=== PATIENT | male | born 1985 | race Caucasian/White ===

== ENCOUNTER 2018-09-17 12:10 | Inpatient (IN) | payer OTHER ==
--- NOTE | 2018-09-17 12:38 | HP ---
COWS - Scale Resting Pulse: 2= [place] 101-120 Sweatin= Chills/Flushing Restless Observation: 1= Difficult to Sit Still Pupil Size: 1= Pupils >than Normal Bone or Joint Aches: 2= Severe Diffuse Aches Runny Nose/ Eye Tearin= Runny Nose/Eyes GI Upset > 30mins: 2= Nausea/Diarrhea Tremor Observation: 2= Slight Tremor Visible Yawning Observation: 2= >3x During Session Anxiety or Irritability: 2=Irritable/Anxious Goose Flesh Skin: 0=Smooth Skin COWS Score: 17 Admission ROS S - HPI Chief Complaint: i need help to stop using heroin and cocaine Allergies/Adverse Reactions: Allergies Allergy/AdvReac Type Severity Reaction Status Date / Time No Known Allergies Allergy Verified 09/17/18 13:14 History of Present Illness: this 33 years old male with heroin and cocaine dependence,seeking detox, withdrawal symptom,last detox 08/06 [facility] first time in this facility nicotine dependence weight loss asthma anxiety,depression,insomnia longest period of sobriety 16 months Exam Limitations: No Limitations - Ebola screening Have you traveled outside of the country in the last 21 days: No Have you had contact with anyone from an Ebola affected area: No Do you have a fever: No - Review of Systems Constitutional: Chills, Loss of Appetite, Malaise, Night Sweats, Changes in sleep, Weakness, Unintentional Wgt. Loss EENT: reports: Tearing, Nose Congestion Respiratory: reports: No Symptoms reported Cardiac: reports: Palpitations GI: reports: Diarrhea, Nausea, Vomiting, Abdominal cramping : reports: No Symptoms Reported Musculoskeletal: reports: Back Pain, Joint Pain, Muscle Pain, Joint Stiffness Integumentary: reports: Dryness Neuro: reports: Headache, Tremors Endocrine: reports: No Symptoms Reported Hematology: reports: No Symptoms Reported Psychiatric: reports: No Sypmtoms Reported, Judgement Intact, Mood/Affect Appropiate, Orientated x3, Anxious, Depressed (insomnia) Patient History - Patient Medical History Hx Anemia: No Hx Asthma: Yes (on albutrol and symbicort inhaler) Hx Cancer: No Hx Cardiac Disorders: No Hx Congestive Heart Failure: No Hx Hypertension: No Hx Hypercholesterolemia: No Hx Pacemaker: No HX Cerebrovascular Accident: No Hx Seizures: No Hx Dementia: No Hx Diabetes: No Hx Gastrointestinal Disorders: No Hx Liver Disease: No Hx Genitourinary Disorders: No Hx Sexually Transmitted Disorders: No Hx Renal Disease (ESRD): No Hx Thyroid Disease: No Hx Human Immunodeficiency Virus (HIV): No (last 08/06 negative) Hx Hepatitis C: No Hx Depression: Yes (anxiety,insomnia) Hx Suicide Attempt: No Hx Bipolar Disorder: No Hx Schizophrenia: No Other Medical History: no sucidal,no homicidal - Patient Surgical History Past Surgical History: Yes Other Surgical History: incional and draige of abscess right elbow 1 month ago - PPD History Previous Implant?: Yes Documented Results: Negative w/o proof Implanted On Prior [facility] Admission?: No PPD to be Administered?: Yes - Smoking Cessation Smoking history: Current every day smoker Have you smoked in the past 12 months: Yes Aproximately how many cigarettes per day: 20 Cigars Per Day: 0 Hx Chewing Tobacco Use: No Initiated information on smoking cessation: Yes 'Breaking Loose' booklet given: 09/17/18 - Substance & Tx. History Hx Alcohol Use: No Hx Substance Use: Yes Substance Use Type: Alcohol, Cocaine, Heroin Hx Substance Use Treatment: Yes (08/06 [facility]) - Substances Abused Heroin Route: Injection Frequency: Daily Amount used: 10 to20 bags Age of first use: 27 Date of Last Use: 09/16/18 Cocaine Route: Injection Frequency: 1-2 times per week Amount used: 20$ Age of first use: 20 Date of Last Use: 09/15/18 Family Disease History - Family Disease History Family History: Denies Admission Physical Exam BHS - Vital Signs Vital Signs: Vital Signs Temperature 97.1 F L 09/18/18 06:06 Pulse Rate 88 09/18/18 06:06 Respiratory Rate 18 09/18/18 06:30 Blood Pressure 119/80 09/18/18 06:06 O2 Sat by Pulse Oximetry (%) - Physical General Appearance: Yes: Moderate Distress, Tremorous, Irritable, Sweating, Anxious HEENTM: Yes: Normal ENT Inspection, Normocephalic, SAMIA, Pharynx Normal Respiratory: Yes: Within Normal Limits, Lungs Clear, Normal Breath Sounds Neck: Yes: Within Normal Limits, Supple, Trachea in good position Breast: Yes: Within Normal Limits Cardiology: Yes: Tachycardia Abdominal: Yes: Within Normal Limits, Normal Bowel Sounds, Non Tender, Flat, Soft Genitourinary: Yes: Within Normal Limits Back: Yes: Muscle Spasm Musculoskeletal: Yes: full range of Motion, Joint Stiffness, Muscle Pain Extremities: Yes: Within Normal Limits, Normal Range of Motion, Tremors Neurological: Yes: wire puller II-XII NML intact, Fully Oriented, Alert, Motor Strength 5/5 Integumentary: Yes: Dry Lymphatic: Yes: Within Normal Limits - Diagnostic (1) Opioid dependence with withdrawal Current Visit: Yes Status: Acute (2) Cocaine dependence Current Visit: Yes Status: Acute (3) IVDU (intravenous drug user) Current Visit: Yes Status: Acute (4) Nicotine dependence Current Visit: Yes Status: Acute (5) Weight loss Current Visit: Yes Status: Acute (6) Insomnia secondary to depression with anxiety Current Visit: Yes Status: Acute Cleared for Admission [facility] - Detox or Rehab [facility] Level of Care: Medically Managed Detox Regimen/Protocol: Methadone
[2018-09-17 12:51] VITALS: BMI 21.1
[2018-09-17] MEDS ORDERED: MENTHOL/PHENOL 1 EACH UD MM PRN (13:05)
[2018-09-17] MEDS ORDERED: MAG HYDROX/AL HYDROX/SIMETH 30 ML UNIT-DOSE CUP PO PRN (13:05)
[2018-09-17] MEDS ORDERED: MAGNESIUM HYDROX 2400MG/30ML ORAL SUSPENSION 30 ML CUP PO PRN (13:05)
[2018-09-17] MEDS ORDERED: P-EPHED 60MG/TRIPROLIDI 2.5MG TABLET PO PRN (13:05)
[2018-09-17] MEDS ORDERED: MAGNESIUM CITRATE 300 ML BOTTLE PO PRN (13:05)
[2018-09-17] MEDS ORDERED: LOPERAMIDE HCL 2 MG CAPSULE PO PRN (13:05)
[2018-09-17] MEDS ORDERED: METHADONE HCL 10 MG TABLET (FOR DETOX USE ONLY) PO ONE ×2 (13:45→23:00)
[2018-09-17] MEDS: diazePAM 5 MG TABLET PO PRN ×2 (15:06→19:52)
[2018-09-17] MEDS: NICOTINE POLACRILEX 2 MG GUM BUC PRN (15:11)
[2018-09-17] MEDS: NICOTINE 21 MG/24 HOURS TOPICAL PATCH TD SCH (15:11)
--- NOTE | 2018-09-17 16:06 | EKG ---
Test Reason : Blood Pressure : / mmHG Vent. Rate : 097 BPM Atrial Rate : 097 BPM P-R Int : 140 ms QRS Dur : 082 ms QT Int : 324 ms P-R-T Axes : 052 076 052 degrees QTc Int : 411 ms NORMAL SINUS RHYTHM NORMAL ECG NO PREVIOUS ECGS AVAILABLE Confirmed by MD CLARICE, IRINA ([id number]) on 09/17/2018 4:05:57 PM Referred By: Confirmed By:IRINA ONEIL MD
[2018-09-17 17:36] LABS: URINE APPEARANCE CLEAR; URINE BILIRUBIN NEGATIVE (<2.0 mg/dL); URINE COLOR STRAW; URINE GLUCOSE (UA) NEGATIVE (NEGATIVE); URINE KETONE NEGATIVE (NEGATIVE); URINE LEUK ESTERASE NEGATIVE (NEGATIVE); URINE NITRITE NEGATIVE (NEGATIVE); URINE PROTEIN NEGATIVE (NEGATIVE); URINE UROBILINOGEN NEGATIVE mg/dL (0.2-1.0)
[2018-09-17] MEDS: ACETAMINOPHEN 325 MG TABLET (FP) PO PRN (19:50)
[2018-09-17] MEDS: CYCLOBENZAPRINE HCL 10 MG TABLET (FP) PO PRN (19:52)
[2018-09-17] MEDS: THIAMINE HCL 100 MG TABLET (FP) PO SCH (22:11)
[2018-09-17] MEDS: cloNIDine HCL 0.1 MG TABLET PO SCH (22:12)
[2018-09-17] MEDS: BUDESONIDE/FORMETEROL FUMARATE 80/4.5 mcg INHALER IH SCH (22:12)
[2018-09-18] MEDS: CYCLOBENZAPRINE HCL 10 MG TABLET (FP) PO PRN ×3 (08:42→22:07)
[2018-09-18 09:59] LABS: HEMATOCRIT 34.3 % (35.4-49); HEMOGLOBIN 11.4 GM/dL (11.7-16.9); MCH 30.4 pg (25.7-33.7); MCHC 33.1 g/dl (32.0-35.9); MEAN CELL VOLUME 91.7 fl (80-96); MEAN PLT VOLUME 9.7 fl (7.5-11.1); PLATELET COUNT 249 K/MM3 (134-434); RBC 3.74 M/mm3 (4.00-5.60); RDW 14.3 % (11.9-15.9); WHITE BLOOD COUNT 8.2 K/mm3 (4.0-10.0)
[2018-09-18] MEDS ORDERED: METHADONE HCL 10 MG TABLET (FOR DETOX USE ONLY) PO ONE (10:00)
[2018-09-18] MEDS: NICOTINE 21 MG/24 HOURS TOPICAL PATCH TD SCH (10:03)
[2018-09-18] MEDS: ACETAMINOPHEN 325 MG TABLET (FP) PO PRN ×3 (10:04→22:05)
[2018-09-18] MEDS: diazePAM 5 MG TABLET PO PRN ×3 (10:05→22:04)
[2018-09-18] MEDS: cloNIDine HCL 0.1 MG TABLET PO SCH ×2 (10:06→22:04)
[2018-09-18] MEDS: PRENATAL VITAMINS W/ FOLIC ACID TABLET (FP) PO SCH (10:08)
[2018-09-18] MEDS: BUDESONIDE/FORMETEROL FUMARATE 80/4.5 mcg INHALER IH SCH ×2 (10:10→22:03)
[2018-09-18 10:44] LABS: ALBUMIN 3.4 g/dl (3.4-5.0); ALK PHOS 55 U/L (45-117); ANION GAP 10 MMOL/L (8-16); BILIRUBIN,TOTAL 0.4 mg/dL (0.2-1); BLOOD UREA NITROGEN 9 mg/dL (7-18); CALCIUM 8.5 mg/dL (8.5-10.1); CHLORIDE 103 mmol/L (98-107); CO2 27 mmol/L (21-32); CREATININE 0.9 mg/dL (0.55-1.3); GLUCOSE,RANDOM 136 mg/dL (74-106); POTASSIUM 3.9 mmol/L (3.5-5.1); SGOT/AST 22 U/L (15-37); SGPT/ALT 29 U/L (13-61); SODIUM 139 mmol/L (136-145); TOT PROT 6.9 g/dl (6.4-8.2)
[2018-09-18] MEDS: IBUPROFEN 400 MG TABLET (FP) PO PRN (13:32)
--- NOTE | 2018-09-18 15:25 | PN ---
BHS COWS - Scale Resting Pulse: 2= [place] 101-120 Sweatin= Chills/Flushing Restless Observation: 3= Extraneous Movement Pupil Size: 0= Normal to Room Light Bone or Joint Aches: 2= Severe Diffuse Aches Runny Nose/ Eye Tearin= Runny Nose/Eyes GI Upset > 30mins: 2= Nausea/Diarrhea Tremor Observation of Outstretched Hands: 2= Slight Tremor Visible Yawning Observation: 0= None Anxiety or Irritability: 2=Irritable/Anxious Goose Flesh Skin: 0=Smooth Skin COWS Score: 16 BHS Progress Note (SOAP) Subjective: Sweating, tremor, joint pain, stomach cramps, nausea Objective: 09/18/18 15:21 Last Vital Signs Temp Pulse Resp BP Pulse Ox 97.0 F L 104 H 18 127/93 09/18/18 09:08 09/18/18 09:08 09/18/18 09:08 09/18/18 09:08 Laboratory Tests 09/17/18 09/18/18 09/18/18 16:30 06:00 06:00 WBC 8.2 RBC 3.74 L Hgb 11.4 L Hct 34.3 L MCV 91.7 MCH 30.4 MCHC 33.1 RDW 14.3 Plt Count 249 MPV 9.7 Sodium 139 Potassium 3.9 Chloride 103 Carbon Dioxide 27 Anion Gap 10 BUN 9 Creatinine 0.9 Creat Clearance w eGFR > 60 Random Glucose 136 H Calcium 8.5 Total Bilirubin 0.4 AST 22 ALT 29 Alkaline Phosphatase 55 Total Protein 6.9 Albumin 3.4 Urine Color Straw Urine Appearance Clear Urine pH 8.0 Ur Specific [place] 1.006 L Urine Protein Negative Urine Glucose (UA) Negative Urine Ketones Negative Urine Blood Negative Urine Nitrite Negative Urine Bilirubin Negative Urine Urobilinogen Negative Ur Leukocyte Esterase Negative RPR Titer 09/18/18 06:00 WBC RBC Hgb Hct MCV MCH MCHC RDW Plt Count MPV Sodium Potassium Chloride Carbon Dioxide Anion Gap BUN Creatinine Creat Clearance w eGFR Random Glucose Calcium Total Bilirubin AST ALT Alkaline Phosphatase Total Protein Albumin Urine Color Urine Appearance Urine pH Ur Specific [place] Urine Protein Urine Glucose (UA) Urine Ketones Urine Blood Urine Nitrite Urine Bilirubin Urine Urobilinogen Ur Leukocyte Esterase RPR Titer Nonreactive Labs reviewed: serum glucose 136 Assessment: 09/18/18 15:23 Withdrawal symptoms Noted with hyperglycemia Plan: Withdrawal symptoms Hyperglycemia: could be related to withdrawal, repeat fasting serum glucose in AM
--- NOTE | 2018-09-18 16:59 | CONSULT ---
[facility] Psychiatric Consult - Data Date of interview: 09/18/18 Admission source: [facility] Identifying data: Patient is a 33 year old single male, father of three, unemployed and currently homeless. This is patient's first admission to detox at [facility]. Patient admitted to for opioid dependence. Substance Abuse History: - Smoking Cessation. Smoking history: Current every day smoker. Have you smoked in the past 12 months: Yes. Aproximately how many cigarettes per day: 20. Cigars Per Day: 0. Hx Chewing Tobacco Use: No. Initiated information on smoking cessation: Yes. 'Breaking Loose' booklet given : 09/17/18. - Substance & Tx. History. Hx Alcohol Use: No. Hx Substance Use: Yes. Substance Use Type: Alcohol, Cocaine, Heroin. Hx Substance Use Treatment : Yes (08/06 [facility]). - Substances Abused. Heroin. Route : Injection. Frequency: Daily. Amount used: 10 to20 bags. Age of first use: 27. Date of Last Use: 09/16/18. Cocaine. Route: Injection. Frequency: 1- 2 times per week. Amount used: 20$. Age of first use: 20. Date of Last Use: 09/15/18 Medical History: Asthma Psychiatric History: Patient denies h/o psychiatric hospitalization and suicide attempt. He reports psychiatric care at the [facility] in 2010 in which he was prescribed celexa. He reports taking celexa for several months and then discontinued medication. In 2014 he was admitted to [facility] and was prescribed celexa and gabapentin. Patient last took celexa and gabapentin in 2014. At present, patient is c/o anxiety. Patient does not want to resume celexa. Physical/Sexual Abuse/Trauma History: denies. Mental Status Exam - Mental Status Exam Alert and Oriented to: Time, Place, Person Cognitive Function: Good Patient Appearance: Well Groomed Mood: Euthymic Affect: Appropriate Patient Behavior: Appropriate, Cooperative Speech Pattern: Clear, Appropriate Voice Loudness: Normal Thought Process: Intact, Goal Oriented Thought Disorder: Not Present Hallucinations: Denies Suicidal Ideation: Denies Homicidal Ideation: Denies Insight/Judgement: Fair Sleep: Fair Appetite: Fair Muscle strength/Tone: Normal Gait/Station: Normal Psychiatric Findings - Problem List (Falls Of Rough 1, 2,3) (1) Opioid dependence with withdrawal Current Visit: Yes Status: Acute (2) Cocaine dependence Current Visit: Yes Status: Chronic (3) Substance-induced anxiety disorder Current Visit: Yes Status: Acute (4) Nicotine dependence Current Visit: Yes Status: Chronic - Initial Treatment Plan Initial Treatment Plan: Psychoeducation provided. Detoxification in progress. Will order Vistaril 50mg q4h. Benefits and side effects discussed. Verbal consent given. Observation.
[2018-09-18] MEDS: ALBUTEROL SO4 8 GM HFA INHALER IH PRN ×2 (17:03→22:04)
[2018-09-18] MEDS: guaiFENesin/D-METHORPHAN HB 10 ML UNIT-DOSE CUPS PO PRN ×2 (17:05→22:05)
[2018-09-18] MEDS: THIAMINE HCL 100 MG TABLET (FP) PO SCH (22:03)
[2018-09-19] MEDS: diazePAM 5 MG TABLET PO PRN ×3 (05:54→19:28)
[2018-09-19] MEDS: ALBUTEROL SO4 8 GM HFA INHALER IH PRN ×2 (05:54→19:28)
[2018-09-19] MEDS: guaiFENesin/D-METHORPHAN HB 10 ML UNIT-DOSE CUPS PO PRN ×2 (05:54→19:28)
[2018-09-19] MEDS: CYCLOBENZAPRINE HCL 10 MG TABLET (FP) PO PRN ×2 (05:54→19:28)
[2018-09-19] MEDS: IBUPROFEN 400 MG TABLET (FP) PO PRN (06:22)
[2018-09-19] MEDS: ACETAMINOPHEN 325 MG TABLET (FP) PO PRN (08:29)
[2018-09-19] MEDS: BUDESONIDE/FORMETEROL FUMARATE 80/4.5 mcg INHALER IH SCH ×2 (09:59→22:26)
[2018-09-19] MEDS: cloNIDine HCL 0.1 MG TABLET PO SCH ×2 (10:00→22:26)
[2018-09-19] MEDS: PRENATAL VITAMINS W/ FOLIC ACID TABLET (FP) PO SCH (10:00)
[2018-09-19] MEDS ORDERED: METHADONE HCL 5 MG TABLET (FOR DETOX USE ONLY) PO ONE (10:00)
[2018-09-19] MEDS: NICOTINE 21 MG/24 HOURS TOPICAL PATCH TD SCH (10:02)
[2018-09-19] MEDS: NICOTINE POLACRILEX 2 MG GUM BUC PRN (10:03)
--- NOTE | 2018-09-19 15:01 | PN ---
BHS COWS - Scale Resting Pulse: 2= [place] 101-120 Sweatin= Chills/Flushing Restless Observation: 3= Extraneous Movement Pupil Size: 0= Normal to Room Light Bone or Joint Aches: 2= Severe Diffuse Aches Runny Nose/ Eye Tearin= Runny Nose/Eyes GI Upset > 30mins: 2= Nausea/Diarrhea Tremor Observation of Outstretched Hands: 2= Slight Tremor Visible Yawning Observation: 0= None Anxiety or Irritability: 2=Irritable/Anxious Goose Flesh Skin: 0=Smooth Skin COWS Score: 16 BHS Progress Note (SOAP) Subjective: Sweating, joint pain, stomach cramps, diarrhea, feeling weak Objective: 09/19/18 15:02 Last Vital Signs Temp Pulse Resp BP Pulse Ox 97.2 F L 115 H 18 105/72 09/19/18 13:20 09/19/18 13:20 09/19/18 13:20 09/19/18 13:20 Laboratory Tests 09/17/18 09/18/18 09/18/18 16:30 06:00 06:00 WBC 8.2 RBC 3.74 L Hgb 11.4 L Hct 34.3 L MCV 91.7 MCH 30.4 MCHC 33.1 RDW 14.3 Plt Count 249 MPV 9.7 Sodium 139 Potassium 3.9 Chloride 103 Carbon Dioxide 27 Anion Gap 10 BUN 9 Creatinine 0.9 Creat Clearance w eGFR > 60 Random Glucose 136 H Fasting Glucose Calcium 8.5 Total Bilirubin 0.4 AST 22 ALT 29 Alkaline Phosphatase 55 Total Protein 6.9 Albumin 3.4 Urine Color Straw Urine Appearance Clear Urine pH 8.0 Ur Specific [place] 1.006 L Urine Protein Negative Urine Glucose (UA) Negative Urine Ketones Negative Urine Blood Negative Urine Nitrite Negative Urine Bilirubin Negative Urine Urobilinogen Negative Ur Leukocyte Esterase Negative RPR Titer 09/18/18 09/19/18 06:00 07:00 WBC RBC Hgb Hct MCV MCH MCHC RDW Plt Count MPV Sodium Potassium Chloride Carbon Dioxide Anion Gap BUN Creatinine Creat Clearance w eGFR Random Glucose Fasting Glucose 92 Calcium Total Bilirubin AST ALT Alkaline Phosphatase Total Protein Albumin Urine Color Urine Appearance Urine pH Ur Specific [place] Urine Protein Urine Glucose (UA) Urine Ketones Urine Blood Urine Nitrite Urine Bilirubin Urine Urobilinogen Ur Leukocyte Esterase RPR Titer Nonreactive Labs reviewed Assessment: 09/19/18 15:03 Withdrawal symptoms Plan: Continue detox Encouraged PO water intake
[2018-09-19] MEDS: THIAMINE HCL 100 MG TABLET (FP) PO SCH (22:27)
[2018-09-19] MEDS: hydrOXYzine PAMOATE 50 MG CAPSULE (FP) PO PRN (22:27)
[2018-09-20] MEDS: diazePAM 5 MG TABLET PO PRN ×2 (07:43→11:58)
[2018-09-20] MEDS: IBUPROFEN 400 MG TABLET (FP) PO PRN ×2 (07:44→17:27)
[2018-09-20] MEDS: CYCLOBENZAPRINE HCL 10 MG TABLET (FP) PO PRN ×3 (07:44→22:08)
[2018-09-20] MEDS: guaiFENesin/D-METHORPHAN HB 10 ML UNIT-DOSE CUPS PO PRN ×2 (07:45→17:25)
[2018-09-20] MEDS: NICOTINE 21 MG/24 HOURS TOPICAL PATCH TD SCH (09:36)
[2018-09-20] MEDS: PRENATAL VITAMINS W/ FOLIC ACID TABLET (FP) PO SCH (09:36)
[2018-09-20] MEDS: cloNIDine HCL 0.1 MG TABLET PO SCH ×2 (09:36→22:07)
[2018-09-20] MEDS: BUDESONIDE/FORMETEROL FUMARATE 80/4.5 mcg INHALER IH SCH ×2 (09:36→22:06)
[2018-09-20] MEDS: ALBUTEROL SO4 8 GM HFA INHALER IH PRN (09:37)
[2018-09-20] MEDS: NICOTINE POLACRILEX 2 MG GUM BUC PRN ×3 (09:40→20:46)
[2018-09-20] MEDS ORDERED: METHADONE HCL 5 MG TABLET (FOR DETOX USE ONLY) PO ONE (10:00)
--- NOTE | 2018-09-20 15:15 | PN ---
BHS Progress Note (SOAP) Subjective: Sweating, aching, nausea, chills, interrupted sleep Objective: 09/20/18 15:15 Last Vital Signs Temp Pulse Resp BP Pulse Ox 97.1 F L 104 H 20 104/69 09/20/18 14:26 09/20/18 14:26 09/20/18 10:29 09/20/18 14:26 Laboratory Tests 09/17/18 09/18/18 09/18/18 16:30 06:00 06:00 WBC 8.2 RBC 3.74 L Hgb 11.4 L Hct 34.3 L MCV 91.7 MCH 30.4 MCHC 33.1 RDW 14.3 Plt Count 249 MPV 9.7 Sodium 139 Potassium 3.9 Chloride 103 Carbon Dioxide 27 Anion Gap 10 BUN 9 Creatinine 0.9 Creat Clearance w eGFR > 60 Random Glucose 136 H Fasting Glucose Calcium 8.5 Total Bilirubin 0.4 AST 22 ALT 29 Alkaline Phosphatase 55 Total Protein 6.9 Albumin 3.4 Urine Color Straw Urine Appearance Clear Urine pH 8.0 Ur Specific [place] 1.006 L Urine Protein Negative Urine Glucose (UA) Negative Urine Ketones Negative Urine Blood Negative Urine Nitrite Negative Urine Bilirubin Negative Urine Urobilinogen Negative Ur Leukocyte Esterase Negative RPR Titer 09/18/18 09/19/18 06:00 07:00 WBC RBC Hgb Hct MCV MCH MCHC RDW Plt Count MPV Sodium Potassium Chloride Carbon Dioxide Anion Gap BUN Creatinine Creat Clearance w eGFR Random Glucose Fasting Glucose 92 Calcium Total Bilirubin AST ALT Alkaline Phosphatase Total Protein Albumin Urine Color Urine Appearance Urine pH Ur Specific [place] Urine Protein Urine Glucose (UA) Urine Ketones Urine Blood Urine Nitrite Urine Bilirubin Urine Urobilinogen Ur Leukocyte Esterase RPR Titer Nonreactive Labs reviewed Assessment: 09/20/18 15:15 Withdrawal symptoms Plan: Continue detox Encouraged PO water intake
[2018-09-20] MEDS: hydrOXYzine PAMOATE 50 MG CAPSULE (FP) PO PRN ×2 (17:26→22:07)
[2018-09-20] MEDS: THIAMINE HCL 100 MG TABLET (FP) PO SCH (22:06)
[2018-09-20] MEDS: ACETAMINOPHEN 325 MG TABLET (FP) PO PRN (22:09)
[2018-09-20] MEDS: MELATONIN 5 MG TABLETS PO PRN (22:10)
[2018-09-21] MEDS ORDERED: ONDANSETRON *ODT* 4 MG TABLET SL PRN (09:52)
--- NOTE | 2018-09-21 09:53 | PN ---
[facility] Progress Note Note: Vital Signs Temperature 97.7 F 09/21/18 09:05 Pulse Rate 117 H 09/21/18 09:05 Respiratory Rate 18 09/21/18 09:05 Blood Pressure 122/94 09/21/18 09:05 O2 Sat by Pulse Oximetry (%) Laboratory Last Values WBC 8.2 K/mm3 (4.0-10.0) 09/18/18 06:00 RBC 3.74 M/mm3 (4.00-5.60) L 09/18/18 06:00 Hgb 11.4 GM/dL (11.7-16.9) L 09/18/18 06:00 Hct 34.3 % (35.4-49) L 09/18/18 06:00 MCV 91.7 fl (80-96) 09/18/18 06:00 MCH 30.4 pg (25.7-33.7) 09/18/18 06:00 MCHC 33.1 g/dl (32.0-35.9) 09/18/18 06:00 RDW 14.3 % (11.9-15.9) 09/18/18 06:00 Plt Count 249 K/MM3 (134-434) 09/18/18 06:00 MPV 9.7 fl (7.5-11.1) 09/18/18 06:00 Sodium 139 mmol/L (136-145) 09/18/18 06:00 Potassium 3.9 mmol/L (3.5-5.1) 09/18/18 06:00 Chloride 103 mmol/L (98-107) 09/18/18 06:00 Carbon Dioxide 27 mmol/L (21-32) 09/18/18 06:00 Anion Gap 10 MMOL/L (8-16) 09/18/18 06:00 BUN 9 mg/dL (7-18) 09/18/18 06:00 Creatinine 0.9 mg/dL (0.55-1.3) 09/18/18 06:00 Creat Clearance w eGFR > 60 (>60) 09/18/18 06:00 Random Glucose 136 mg/dL (74-106) H 09/18/18 06:00 Fasting Glucose 92 mg/dL (74-106) 09/19/18 07:00 Calcium 8.5 mg/dL (8.5-10.1) 09/18/18 06:00 Total Bilirubin 0.4 mg/dL (0.2-1) 09/18/18 06:00 AST 22 U/L (15-37) 09/18/18 06:00 ALT 29 U/L (13-61) 09/18/18 06:00 Alkaline Phosphatase 55 U/L (45-117) 09/18/18 06:00 Total Protein 6.9 g/dl (6.4-8.2) 09/18/18 06:00 Albumin 3.4 g/dl (3.4-5.0) 09/18/18 06:00 Urine Color Straw 09/17/18 16:30 Urine Appearance Clear 09/17/18 16:30 Urine pH 8.0 (5.0-8.0) 09/17/18 16:30 Ur Specific [place] 1.006 (1.010-1.035) L 09/17/18 16:30 Urine Protein Negative (NEGATIVE) 09/17/18 16:30 Urine Glucose (UA) Negative (NEGATIVE) 09/17/18 16:30 Urine Ketones Negative (NEGATIVE) 09/17/18 16:30 Urine Blood Negative (NEGATIVE) 09/17/18 16:30 Urine Nitrite Negative (NEGATIVE) 09/17/18 16:30 Urine Bilirubin Negative (<2.0 mg/dL) 09/17/18 16:30 Urine Urobilinogen Negative mg/dL (0.2-1.0) 09/17/18 16:30 Ur Leukocyte Esterase Negative (NEGATIVE) 09/17/18 16:30 RPR Titer Nonreactive (NONREACTIVE) 09/18/18 06:00 c/o of diarrhea, nausea and body aches Aox3 no distress anxious no adventitious breath sounds BS non-tender non distended full ROM ambulatory withdrawal symptoms zofran prn increase po fluids continue detox d/c in AM
[2018-09-21] MEDS ORDERED: METHADONE HCL 10 MG TABLET (FOR DETOX USE ONLY) PO ONE (10:00)
[2018-09-21] MEDS: CYCLOBENZAPRINE HCL 10 MG TABLET (FP) PO PRN ×3 (10:41→22:35)
[2018-09-21] MEDS: NICOTINE 21 MG/24 HOURS TOPICAL PATCH TD SCH (10:41)
[2018-09-21] MEDS: cloNIDine HCL 0.1 MG TABLET PO SCH ×2 (10:41→22:33)
[2018-09-21] MEDS: BUDESONIDE/FORMETEROL FUMARATE 80/4.5 mcg INHALER IH SCH ×2 (10:41→22:33)
[2018-09-21] MEDS: guaiFENesin/D-METHORPHAN HB 10 ML UNIT-DOSE CUPS PO PRN ×2 (10:41→22:37)
[2018-09-21] MEDS: PRENATAL VITAMINS W/ FOLIC ACID TABLET (FP) PO SCH (10:42)
[2018-09-21] MEDS: ALBUTEROL SO4 8 GM HFA INHALER IH PRN ×2 (10:43→22:36)
[2018-09-21] MEDS: IBUPROFEN 400 MG TABLET (FP) PO PRN (17:11)
[2018-09-21] MEDS: hydrOXYzine PAMOATE 50 MG CAPSULE (FP) PO PRN (17:12)
[2018-09-21] MEDS: THIAMINE HCL 100 MG TABLET (FP) PO SCH (22:33)
[2018-09-21] MEDS: MELATONIN 5 MG TABLETS PO PRN (22:34)
[2018-09-21] MEDS: NICOTINE POLACRILEX 2 MG GUM BUC PRN (22:37)
[2018-09-22] MEDS ORDERED: METHADONE HCL 5 MG TABLET (FOR DETOX USE ONLY) PO ONE (06:00)
[2018-09-22] MEDS: PRENATAL VITAMINS W/ FOLIC ACID TABLET (FP) PO SCH (09:25)
[2018-09-22] MEDS: hydrOXYzine PAMOATE 50 MG CAPSULE (FP) PO PRN (09:25)
[2018-09-22] MEDS: cloNIDine HCL 0.1 MG TABLET PO SCH (09:25)
[2018-09-22] MEDS: CYCLOBENZAPRINE HCL 10 MG TABLET (FP) PO PRN (09:25)
[2018-09-22] MEDS: BUDESONIDE/FORMETEROL FUMARATE 80/4.5 mcg INHALER IH SCH (09:25)
[2018-09-22] MEDS: IBUPROFEN 400 MG TABLET (FP) PO PRN (09:26)
[2018-09-22] MEDS: NICOTINE 21 MG/24 HOURS TOPICAL PATCH TD SCH (09:26)
[2018-09-22 09:37] VITALS: BP 121/77; PULSE 111; TEMP 97.2
--- NOTE | 2018-09-22 13:14 | DS ---
[facility] Detox Discharge Summary Admission Date: 09/17/18 Discharge Date: 09/22/18 - History Present History: Cocaine Dependence, Opioid Dependence Additional Comments: Patient discharged to [facility] - Physical Exam Results Vital Signs: Vital Signs Temperature 97.2 F L 09/22/18 09:37 Pulse Rate 111 H 09/22/18 09:37 Respiratory Rate 20 09/22/18 09:37 Blood Pressure 121/77 09/22/18 09:37 O2 Sat by Pulse Oximetry (%) Pertinent Admission Physical Exam Findings: Withdrawal symptoms Laboratory Tests 09/17/18 09/18/18 09/18/18 16:30 06:00 06:00 WBC 8.2 RBC 3.74 L Hgb 11.4 L Hct 34.3 L MCV 91.7 MCH 30.4 MCHC 33.1 RDW 14.3 Plt Count 249 MPV 9.7 Sodium 139 Potassium 3.9 Chloride 103 Carbon Dioxide 27 Anion Gap 10 BUN 9 Creatinine 0.9 Creat Clearance w eGFR > 60 Random Glucose 136 H Fasting Glucose Calcium 8.5 Total Bilirubin 0.4 AST 22 ALT 29 Alkaline Phosphatase 55 Total Protein 6.9 Albumin 3.4 Urine Color Straw Urine Appearance Clear Urine pH 8.0 Ur Specific [place] 1.006 L Urine Protein Negative Urine Glucose (UA) Negative Urine Ketones Negative Urine Blood Negative Urine Nitrite Negative Urine Bilirubin Negative Urine Urobilinogen Negative Ur Leukocyte Esterase Negative RPR Titer 09/18/18 09/19/18 06:00 07:00 WBC RBC Hgb Hct MCV MCH MCHC RDW Plt Count MPV Sodium Potassium Chloride Carbon Dioxide Anion Gap BUN Creatinine Creat Clearance w eGFR Random Glucose Fasting Glucose 92 Calcium Total Bilirubin AST ALT Alkaline Phosphatase Total Protein Albumin Urine Color Urine Appearance Urine pH Ur Specific [place] Urine Protein Urine Glucose (UA) Urine Ketones Urine Blood Urine Nitrite Urine Bilirubin Urine Urobilinogen Ur Leukocyte Esterase RPR Titer Nonreactive Labs reviewed - Treatment Hospital Course: Detox Protocol Followed, Detoxed Safely, Responded well, Discharged Condition Good, Rehab Referral Accepted - Medication Discharge Medications: Ambulatory Orders Albuterol Sulfate Inhaler - [Ventolin HFA Inhaler -] 2 puff IH Q4H PRN 09/17/18 Budesonide/Formeterol Fumarate [SYMBICORT 80/4.5mcg -] 1 inh PO BID 09/17/18 Albuterol Sulfate Inhaler - [Ventolin HFA Inhaler -] 2 puff IH Q4H PRN #1 inhaler 09/21/18 Budesonide/Formeterol Fumarate [SYMBICORT 80/4.5mcg -] 2 puff IH BID #1 inhaler 09/21/18 - Diagnosis (1) Asthma Current Visit: Yes Status: Chronic (2) Anxiety Current Visit: Yes Status: Chronic (3) Cocaine dependence Current Visit: Yes Status: Chronic (4) Insomnia secondary to depression with anxiety Current Visit: Yes Status: Chronic (5) Nicotine dependence Current Visit: Yes Status: Chronic (6) Opioid dependence with withdrawal Current Visit: Yes Status: Acute - AMA Did Patient Leave Against Medical Advice: No (Patient accepted to [facility] facility)
== END 2018-09-22 10:56 | disposition home or self-care (01) | DRG 773 ==
LOC: YASAS 12:10 → Y3N 13:09
PROC: HZ2ZZZZ Detoxification Services for Substance Abuse Treatment (ICD-10-PCS; principal; 2018-09-17)
DX: F11.23 Opioid dependence with withdrawal (principal); F14.20 Cocaine dependence, uncomplicated; F17.210 Nicotine dependence, cigarettes, uncomplicated; F51.05 Insomnia due to other mental disorder; F41.9 Anxiety disorder, unspecified; F19.280 Other psychoactive substance dependence with psychoactive substance-induced anxiety disorder; J45.909 Unspecified asthma, uncomplicated; R73.9 Hyperglycemia, unspecified; R63.4 Abnormal weight loss; Z68.21 Body mass index [BMI] 21.0-21.9, adult
CPT/HCPCS: 36415; 80053; 81003; 82947; 85027; 86593; 93005; 93010; J0735

== ENCOUNTER 2018-12-22 08:02 | Inpatient (IN) | payer OTHER ==
[2018-12-22 08:52] VITALS: BMI 21.4
--- NOTE | 2018-12-22 09:10 | HP ---
COWS - Scale Resting Pulse: 1= [place] [id number] Sweatin= Chills/Flushing Restless Observation: 3= Extraneous Movement Pupil Size: 1= Pupils >than Normal Bone or Joint Aches: 2= Severe Diffuse Aches Runny Nose/ Eye Tearin= Runny Nose/Eyes GI Upset > 30mins: 2= Nausea/Diarrhea Tremor Observation: 2= Slight Tremor Visible Yawning Observation: 2= >3x During Session Anxiety or Irritability: 2=Irritable/Anxious Goose Flesh Skin: 0=Smooth Skin COWS Score: 18 CIWA Score - Admission Criteria [facility] Guidelines: Admission for Medically Managed Detox: Requires at least one of the followin. CIWA greater than 12 2. Seizures within the past 24 hours 3. Delirium tremens within the past 24 hours 4. Hallucinations within the past 24 hours 5. Acute intervention needed for co occurring medical disorder 6. Acute intervention needed for co occurring psychiatric disorder 7. Severe withdrawal that cannot be handled at a lower level of care (continued vomiting, continued diarrhea, abnormal vital signs) requiring intravenous medication and/or fluids 8. Admission ROS [facility] - [facility] Chief Complaint: i need help to stop using herorin,cocaine,marijuana, Allergies/Adverse Reactions: Allergies Allergy/AdvReac Type Severity Reaction Status Date / Time No Known Allergies Allergy Verified 12/22/18 09:40 History of Present Illness: this 33 years old male with heroin ,cocaine and marijuana dependence,seeking detox,withdrawal symptom,last detox 09/17/18 to 09/22/18 asthma,lyme disease in 2008 used to be on subxoxone ,last 10/17/[address] suboxone 3 days ago once nicotine dependence weight loss anxiety,depression,no medication longest sobriety 1 year Exam Limitations: No Limitations - Ebola screening Have you traveled outside of the country in the last 21 days: No (N) Have you had contact with anyone from an Ebola affected area: No Have you been sick,other than usual withdrawal symptoms: No Do you have a fever: No - Review of Systems Constitutional: Chills, Diaphoresis, Loss of Appetite, Malaise, Night Sweats, Changes in sleep, Weakness, Unintentional Wgt. Loss EENT: reports: Tearing, Nose Congestion Respiratory: reports: No Symptoms reported (asthma) Cardiac: reports: No Symptoms Reported GI: reports: No Symptoms Reported, Diarrhea, Nausea, Abdominal cramping : reports: No Symptoms Reported Musculoskeletal: reports: Back Pain, Joint Pain, Muscle Pain, Joint Stiffness Integumentary: reports: Dryness Neuro: reports: Headache, Tremors Endocrine: reports: No Symptoms Reported Hematology: reports: No Symptoms Reported Psychiatric: reports: No Sypmtoms Reported, Judgement Intact, Mood/Affect Appropiate, Orientated x3 Other Systems: Reviewed and Negative (history of sinusitis) Patient History - Patient Medical History Hx Anemia: No Hx Asthma: Yes (on albutrol and symbicort inhaler) Hx Chronic Obstructive Pulmonary Disease (COPD): No Hx Cancer: No Hx Cardiac Disorders: No Hx Congestive Heart Failure: No Hx Hypertension: No Hx Hypercholesterolemia: No Hx Pacemaker: No HX Cerebrovascular Accident: No Hx Seizures: No Hx Dementia: No Hx Diabetes: No Hx Gastrointestinal Disorders: No Hx Liver Disease: No Hx Genitourinary Disorders: No Hx Sexually Transmitted Disorders: No Hx Renal Disease (ESRD): No Hx Thyroid Disease: No Hx Human Immunodeficiency Virus (HIV): No (last 08/06 negative) Hx Hepatitis C: No Hx Depression: Yes (anxiety,insomnia) Hx Suicide Attempt: No Hx Bipolar Disorder: No Hx Schizophrenia: No Other Medical History: no suicidal,no homicidal - Patient Surgical History Past Surgical History: Yes Other Surgical History: incional and draige of abscess right elbow 1 month ago - PPD History Previous Implant?: Yes Documented Results: Negative w/proof Implanted On Prior R Admission?: Yes Date: 09/19/18 Results: 0 mm PPD to be Administered?: No - Smoking Cessation Smoking history: Current every day smoker Have you smoked in the past 12 months: Yes Aproximately how many cigarettes per day: 20 Cigars Per Day: 0 Hx Chewing Tobacco Use: No Initiated information on smoking cessation: Yes 'Breaking Loose' booklet given: 12/22/18 - Substance & Tx. History Hx Alcohol Use: No Hx Substance Use: Yes Substance Use Type: Cocaine, Heroin, Marijuana Hx Substance Use Treatment: Yes ([facility] 09/[facility]18 [facility] 09/22/18) - Substances Abused Heroin Route: Injection Frequency: Daily Amount used: 30 bags to 40 bags Age of first use: 27 Date of Last Use: 12/21/18 Cocaine Route: Injection Frequency: Daily Amount used: 50$ to 100$ Age of first use: 16 Date of Last Use: 12/21/18 Marijuana/Hashish Route: Smoking Frequency: 1-2 times per week Amount used: 10$ Age of first use: 13 Date of Last Use: 12/20/18 Family Disease History - Family Disease History Family Disease History: Other: Mother (alcohol,dsa,sober) Admission Physical Exam [facility] - Vital Signs Vital Signs: Vital Signs - 24 hr 12/22/18 08:49 Temperature 98.1 F Pulse Rate 99 H Respiratory 18 Rate Blood Pressure 114/72 - Physical General Appearance: Yes: Moderate Distress, Tremorous, Irritable, Sweating, Anxious HEENTM: Yes: Normal ENT Inspection, SAMIA, Pharynx Normal (history of sinusitis) Respiratory: Yes: Lungs Clear, Normal Breath Sounds, No Respiratory Distress ( asthma) Breast: Yes: Within Normal Limits Cardiology: Yes: Within Normal Limits, Regular Rhythm, Regular Rate, S1, S2 Abdominal: Yes: Normal Bowel Sounds, Non Tender, Soft, Organomegaly Genitourinary: Yes: Within Normal Limits Back: Yes: Muscle Spasm Extremities: Yes: Normal Inspection, Normal Range of Motion, Tremors Neurological: Yes: alumni coordinator II-XII NML intact, Fully Oriented, Alert, Motor Strength 5/5 Integumentary: Yes: Dry Lymphatic: Yes: Within Normal Limits - Diagnostic (1) Opioid dependence with withdrawal Current Visit: No Status: Acute (2) IVDU (intravenous drug user) Current Visit: No Status: Acute (3) Weight loss Current Visit: No Status: Acute (4) Asthma Current Visit: No Status: Chronic (5) Cocaine dependence Current Visit: No Status: Chronic (6) Insomnia secondary to depression with anxiety Current Visit: No Status: Chronic (7) Nicotine dependence Current Visit: No Status: Chronic (8) Cannabis abuse Current Visit: Yes Status: Acute (9) Acute sinusitis Current Visit: Yes Status: Acute Cleared for Admission [facility] - Detox or Rehab [facility] Level of Care: Medically Managed Detox Regimen/Protocol: Methadone [facility] Breath Alcohol Content Breath Alcohol Content: 0 Urine Drug Screen - Results Drug Screen Negative: No Urine Drug Screen Results: THC-Marijuana, ZHANG-Cocaine, OPI-Opiates, OXY- Oxycodone, FEN-Fentanyl
[2018-12-22] MEDS ORDERED: MAGNESIUM CITRATE 300 ML BOTTLE PO PRN (09:28)
[2018-12-22] MEDS ORDERED: MENTHOL/PHENOL 1 EACH UD MM PRN (09:28)
[2018-12-22] MEDS ORDERED: ACETAMINOPHEN 325 MG TABLET (FP) PO PRN (09:28)
[2018-12-22] MEDS ORDERED: MAGNESIUM HYDROX 2400MG/30ML ORAL SUSPENSION 30 ML CUP PO PRN (09:28)
[2018-12-22] MEDS ORDERED: guaiFENesin/D-METHORPHAN HB 10 ML UNIT-DOSE CUPS PO PRN (09:28)
[2018-12-22] MEDS ORDERED: LOPERAMIDE HCL 2 MG CAPSULE PO PRN (09:28)
[2018-12-22] MEDS ORDERED: P-EPHED 60MG/TRIPROLIDI 2.5MG TABLET PO PRN (09:28)
[2018-12-22] MEDS ORDERED: ALBUTEROL SO4 8 GM HFA INHALER IH PRN (10:25)
[2018-12-22] MEDS ORDERED: METHADONE HCL 10 MG TABLET (FOR DETOX USE ONLY) PO ONE ×2 (10:30→23:00)
[2018-12-22] MEDS: cloNIDine HCL 0.1 MG TABLET PO SCH ×2 (11:02→22:13)
[2018-12-22] MEDS: diazePAM 5 MG TABLET PO PRN ×3 (11:02→22:13)
[2018-12-22] MEDS: PRENATAL VITAMINS W/ FOLIC ACID TABLET (FP) PO SCH (11:04)
[2018-12-22] MEDS: NICOTINE 21 MG/24 HOURS TOPICAL PATCH TD SCH (11:04)
[2018-12-22] MEDS: AMOX TR/POT CLAV 875MG/125MG TABLETS (FP) PO SCH (17:23)
[2018-12-22] MEDS: NICOTINE POLACRILEX 2 MG GUM BUC PRN (17:25)
[2018-12-22] MEDS: THIAMINE HCL 100 MG TABLET (FP) PO SCH (22:13)
[2018-12-22] MEDS: CYCLOBENZAPRINE HCL 10 MG TABLET (FP) PO PRN (22:13)
[2018-12-22] MEDS: BUDESONIDE/FORMETEROL FUMARATE 80/4.5 mcg INHALER IH SCH (22:19)
[2018-12-23 01:08] LABS: URINE APPEARANCE CLEAR; URINE BILIRUBIN NEGATIVE (<2.0 mg/dL); URINE COLOR DKYELLOW; URINE GLUCOSE (UA) NEGATIVE (NEGATIVE); URINE KETONE NEGATIVE (NEGATIVE); URINE LEUK ESTERASE NEGATIVE (NEGATIVE); URINE NITRITE NEGATIVE (NEGATIVE); URINE PROTEIN 1+ (NEGATIVE); URINE UROBILINOGEN 4.0 E.U/dl mg/dL (0.2-1.0)
[2018-12-23 01:39] LABS: CALCIUM OXALATE CRYSTALS FEW /hpf (NONE SEEN); EPI CELLS RARE /HPF (FEW); URINE MUCUS FEW
[2018-12-23] MEDS: AMOX TR/POT CLAV 875MG/125MG TABLETS (FP) PO SCH ×2 (08:08→17:11)
--- NOTE | 2018-12-23 09:20 | PN ---
BHS COWS - Scale Resting Pulse: 1= [place] 81-100 Sweatin= Chills/Flushing Restless Observation: 1= Difficult to Sit Still Pupil Size: 1= Pupils >than Normal Bone or Joint Aches: 2= Severe Diffuse Aches Runny Nose/ Eye Tearin= Nasal Congestion GI Upset > 30mins: 2= Nausea/Diarrhea Tremor Observation of Outstretched Hands: 2= Slight Tremor Visible Yawning Observation: 1= 1-2x During Session Anxiety or Irritability: 1=Feels Anxious/Irritable Goose Flesh Skin: 0=Smooth Skin COWS Score: 13 BHS Progress Note (SOAP) Subjective: body aches muscle cramping stuffy nose Objective: 12/23/18 09:19 Vital Signs Temperature 97.9 F 12/23/18 09:02 Pulse Rate 96 H 12/23/18 09:02 Respiratory Rate 18 12/23/18 09:02 Blood Pressure 127/86 12/23/18 09:02 O2 Sat by Pulse Oximetry (%) Laboratory Last Values Urine Color Dkyellow 12/22/18 23:51 Urine Appearance Clear 12/22/18 23:51 Urine pH 6.0 (5.0-8.0) D 12/22/18 23:51 Ur Specific [place] 1.031 (1.010-1.035) 12/22/18 23:51 Urine Protein 1+ (NEGATIVE) H 12/22/18 23:51 Urine Glucose (UA) Negative (NEGATIVE) 12/22/18 23:51 Urine Ketones Negative (NEGATIVE) 12/22/18 23:51 Urine Blood Negative (NEGATIVE) 12/22/18 23:51 Urine Nitrite Negative (NEGATIVE) 12/22/18 23:51 Urine Bilirubin Negative (<2.0 mg/dL) 12/22/18 23:51 Urine Urobilinogen 4.0 e.u/dl mg/dL (0.2-1.0) 12/22/18 23:51 Ur Leukocyte Esterase Negative (NEGATIVE) 12/22/18 23:51 Urine WBC (Auto) 1 /hpf (3-5) 12/22/18 23:51 Urine RBC (Auto) 1 /hpf (0-3) 12/22/18 23:51 Ur Epithelial Cells Rare /HPF (FEW) 12/22/18 23:51 Calcium Oxalate Crystal Few /hpf (NONE SEEN) 12/22/18 23:51 Urine Mucus Few 12/22/18 23:51 lab noted Assessment: 12/23/18 09:19 withdrawal sx Plan: continue detox
[2018-12-23] MEDS: PRENATAL VITAMINS W/ FOLIC ACID TABLET (FP) PO SCH (09:32)
[2018-12-23] MEDS: BUDESONIDE/FORMETEROL FUMARATE 80/4.5 mcg INHALER IH SCH ×2 (09:32→22:37)
[2018-12-23] MEDS: diazePAM 5 MG TABLET PO PRN ×3 (09:32→22:36)
[2018-12-23] MEDS: CYCLOBENZAPRINE HCL 10 MG TABLET (FP) PO PRN ×2 (09:34→22:37)
[2018-12-23] MEDS: cloNIDine HCL 0.1 MG TABLET PO SCH ×2 (09:34→22:37)
[2018-12-23] MEDS ORDERED: METHADONE HCL 10 MG TABLET (FOR DETOX USE ONLY) PO ONE (10:00)
[2018-12-23 10:05] LABS: HEMATOCRIT 41.1 % (35.4-49); MCH 30.4 pg (25.7-33.7); MCHC 34.2 g/dl (32.0-35.9); MEAN CELL VOLUME 88.9 fl (80-96); MEAN PLT VOLUME 9.6 fl (7.5-11.1); PLATELET COUNT 234 K/MM3 (134-434); RBC 4.62 M/mm3 (4.00-5.60); RDW 13.7 % (11.9-15.9); WHITE BLOOD COUNT 6.5 K/mm3 (4.0-10.0)
[2018-12-23] MEDS: NICOTINE 21 MG/24 HOURS TOPICAL PATCH TD SCH (10:17)
[2018-12-23 10:32] LABS: ALBUMIN 3.3 g/dl (3.4-5.0); ALK PHOS 50 U/L (45-117); ANION GAP 6 MMOL/L (8-16); BILIRUBIN,TOTAL 0.3 mg/dL (0.2-1); BLOOD UREA NITROGEN 12 mg/dL (7-18); CALCIUM 8.7 mg/dL (8.5-10.1); CHLORIDE 107 mmol/L (98-107); CO2 28 mmol/L (21-32); CREATININE 0.8 mg/dL (0.55-1.3); GLUCOSE,RANDOM 87 mg/dL (74-106); POTASSIUM 4.1 mmol/L (3.5-5.1); SGOT/AST 19 U/L (15-37); SGPT/ALT 24 U/L (13-61); SODIUM 142 mmol/L (136-145); TOT PROT 6.3 g/dl (6.4-8.2)
[2018-12-23] MEDS: THIAMINE HCL 100 MG TABLET (FP) PO SCH (22:37)
[2018-12-24] MEDS: AMOX TR/POT CLAV 875MG/125MG TABLETS (FP) PO SCH ×2 (07:57→16:45)
[2018-12-24] MEDS ORDERED: METHADONE HCL 5 MG TABLET (FOR DETOX USE ONLY) PO ONE (10:00)
[2018-12-24] MEDS: diazePAM 5 MG TABLET PO PRN ×3 (10:30→22:10)
[2018-12-24] MEDS: CYCLOBENZAPRINE HCL 10 MG TABLET (FP) PO PRN ×2 (10:30→22:10)
[2018-12-24] MEDS: PRENATAL VITAMINS W/ FOLIC ACID TABLET (FP) PO SCH (10:30)
[2018-12-24] MEDS: cloNIDine HCL 0.1 MG TABLET PO SCH ×2 (10:30→22:10)
[2018-12-24] MEDS: BUDESONIDE/FORMETEROL FUMARATE 80/4.5 mcg INHALER IH SCH ×2 (10:31→22:10)
[2018-12-24] MEDS: NICOTINE POLACRILEX 2 MG GUM BUC PRN ×3 (10:31→22:13)
[2018-12-24] MEDS: NICOTINE 21 MG/24 HOURS TOPICAL PATCH TD SCH (10:31)
--- NOTE | 2018-12-24 14:58 | PN ---
BHS COWS - Scale Resting Pulse: 1= [place] 81-100 Sweatin= Chills/Flushing Restless Observation: 1= Difficult to Sit Still Pupil Size: 1= Pupils >than Normal Bone or Joint Aches: 1= Mild Discomfort Runny Nose/ Eye Tearin= Nasal Congestion GI Upset > 30mins: 1= Stomach Cramp Tremor Observation of Outstretched Hands: 1= Tremor [place], Not Seen Yawning Observation: 1= 1-2x During Session Anxiety or Irritability: 1=Feels Anxious/Irritable Goose Flesh Skin: 0=Smooth Skin COWS Score: 10 S Progress Note (SOAP) Subjective: body aches tremor sweating otherwise ok doing better than yesterday Objective: 12/24/18 14:57 Vital Signs Temperature 97.2 F L 12/24/18 13:38 Pulse Rate 103 H 12/24/18 13:38 Respiratory Rate 18 12/24/18 13:38 Blood Pressure 117/80 12/24/18 13:38 O2 Sat by Pulse Oximetry (%) Laboratory Last Values WBC 6.5 K/mm3 (4.0-10.0) 12/23/18 07:00 RBC 4.62 M/mm3 (4.00-5.60) 12/23/18 07:00 Hgb 14.0 GM/dL (11.7-16.9) 12/23/18 07:00 Hct 41.1 % (35.4-49) D 12/23/18 07:00 MCV 88.9 fl (80-96) 12/23/18 07:00 MCH 30.4 pg (25.7-33.7) 12/23/18 07:00 MCHC 34.2 g/dl (32.0-35.9) 12/23/18 07:00 RDW 13.7 % (11.9-15.9) 12/23/18 07:00 Plt Count 234 K/MM3 (134-434) 12/23/18 07:00 MPV 9.6 fl (7.5-11.1) 12/23/18 07:00 Sodium 142 mmol/L (136-145) 12/23/18 07:00 Potassium 4.1 mmol/L (3.5-5.1) 12/23/18 07:00 Chloride 107 mmol/L (98-107) 12/23/18 07:00 Carbon Dioxide 28 mmol/L (21-32) 12/23/18 07:00 Anion Gap 6 MMOL/L (8-16) L 12/23/18 07:00 BUN 12 mg/dL (7-18) 12/23/18 07:00 Creatinine 0.8 mg/dL (0.55-1.3) 12/23/18 07:00 Creat Clearance w eGFR > 60 (>60) 12/23/18 07:00 Random Glucose 87 mg/dL (74-106) 12/23/18 07:00 Calcium 8.7 mg/dL (8.5-10.1) 12/23/18 07:00 Total Bilirubin 0.3 mg/dL (0.2-1) 12/23/18 07:00 AST 19 U/L (15-37) 12/23/18 07:00 ALT 24 U/L (13-61) 12/23/18 07:00 Alkaline Phosphatase 50 U/L (45-117) 12/23/18 07:00 Total Protein 6.3 g/dl (6.4-8.2) L 12/23/18 07:00 Albumin 3.3 g/dl (3.4-5.0) L 12/23/18 07:00 Urine Color Dkyellow 12/22/18 23:51 Urine Appearance Clear 12/22/18 23:51 Urine pH 6.0 (5.0-8.0) D 12/22/18 23:51 Ur Specific [place] 1.031 (1.010-1.035) 12/22/18 23:51 Urine Protein 1+ (NEGATIVE) H 12/22/18 23:51 Urine Glucose (UA) Negative (NEGATIVE) 12/22/18 23:51 Urine Ketones Negative (NEGATIVE) 12/22/18 23:51 Urine Blood Negative (NEGATIVE) 12/22/18 23:51 Urine Nitrite Negative (NEGATIVE) 12/22/18 23:51 Urine Bilirubin Negative (<2.0 mg/dL) 12/22/18 23:51 Urine Urobilinogen 4.0 e.u/dl mg/dL (0.2-1.0) 12/22/18 23:51 Ur Leukocyte Esterase Negative (NEGATIVE) 12/22/18 23:51 Urine WBC (Auto) 1 /hpf (3-5) 12/22/18 23:51 Urine RBC (Auto) 1 /hpf (0-3) 12/22/18 23:51 Ur Epithelial Cells Rare /HPF (FEW) 12/22/18 23:51 Calcium Oxalate Crystal Few /hpf (NONE SEEN) 12/22/18 23:51 Urine Mucus Few 12/22/18 23:51 RPR Titer Nonreactive (NONREACTIVE) 12/23/18 07:00 HIV 1&2 Antibody Screen Negative 12/23/18 07:00 HIV P24 Antigen Negative 12/23/18 07:00 lab noted Assessment: 12/24/18 14:58 withdrawal sx Plan: continue detox
[2018-12-24] MEDS: THIAMINE HCL 100 MG TABLET (FP) PO SCH (22:10)
[2018-12-24] MEDS: MAG HYDROX/AL HYDROX/SIMETH 30 ML UNIT-DOSE CUP PO PRN (22:10)
[2018-12-24] MEDS: MELATONIN 5 MG TABLETS PO PRN (22:12)
[2018-12-25] MEDS: IBUPROFEN 400 MG TABLET (FP) PO PRN (06:51)
[2018-12-25] MEDS: diazePAM 5 MG TABLET PO PRN (06:51)
[2018-12-25] MEDS: AMOX TR/POT CLAV 875MG/125MG TABLETS (FP) PO SCH ×2 (07:39→16:59)
[2018-12-25] MEDS ORDERED: METHADONE HCL 5 MG TABLET (FOR DETOX USE ONLY) PO ONE (10:00)
[2018-12-25] MEDS: CYCLOBENZAPRINE HCL 10 MG TABLET (FP) PO PRN ×2 (10:15→22:15)
[2018-12-25] MEDS: cloNIDine HCL 0.1 MG TABLET PO SCH ×2 (10:15→22:15)
[2018-12-25] MEDS: PRENATAL VITAMINS W/ FOLIC ACID TABLET (FP) PO SCH (10:15)
[2018-12-25] MEDS: NICOTINE POLACRILEX 2 MG GUM BUC PRN (10:16)
[2018-12-25] MEDS: BUDESONIDE/FORMETEROL FUMARATE 80/4.5 mcg INHALER IH SCH ×2 (10:16→22:14)
[2018-12-25] MEDS: NICOTINE 21 MG/24 HOURS TOPICAL PATCH TD SCH (10:16)
--- NOTE | 2018-12-25 11:13 | PN ---
BHS Progress Note (SOAP) Subjective: body aches muscle pain tremor sweating patient is taking paxil last 30 days filled 11/22/18 last dose of paxil unknown patient is taking psychotropic medication met psychiatry referral criteria Objective: 12/25/18 11:17 Vital Signs Temperature 97.2 F L 12/25/18 09:12 Pulse Rate 100 H 12/25/18 09:12 Respiratory Rate 18 12/25/18 09:12 Blood Pressure 107/72 12/25/18 09:12 O2 Sat by Pulse Oximetry (%) Laboratory Last Values WBC 6.5 K/mm3 (4.0-10.0) 12/23/18 07:00 RBC 4.62 M/mm3 (4.00-5.60) 12/23/18 07:00 Hgb 14.0 GM/dL (11.7-16.9) 12/23/18 07:00 Hct 41.1 % (35.4-49) D 12/23/18 07:00 MCV 88.9 fl (80-96) 12/23/18 07:00 MCH 30.4 pg (25.7-33.7) 12/23/18 07:00 MCHC 34.2 g/dl (32.0-35.9) 12/23/18 07:00 RDW 13.7 % (11.9-15.9) 12/23/18 07:00 Plt Count 234 K/MM3 (134-434) 12/23/18 07:00 MPV 9.6 fl (7.5-11.1) 12/23/18 07:00 Sodium 142 mmol/L (136-145) 12/23/18 07:00 Potassium 4.1 mmol/L (3.5-5.1) 12/23/18 07:00 Chloride 107 mmol/L (98-107) 12/23/18 07:00 Carbon Dioxide 28 mmol/L (21-32) 12/23/18 07:00 Anion Gap 6 MMOL/L (8-16) L 12/23/18 07:00 BUN 12 mg/dL (7-18) 12/23/18 07:00 Creatinine 0.8 mg/dL (0.55-1.3) 12/23/18 07:00 Creat Clearance w eGFR > 60 (>60) 12/23/18 07:00 Random Glucose 87 mg/dL (74-106) 12/23/18 07:00 Calcium 8.7 mg/dL (8.5-10.1) 12/23/18 07:00 Total Bilirubin 0.3 mg/dL (0.2-1) 12/23/18 07:00 AST 19 U/L (15-37) 12/23/18 07:00 ALT 24 U/L (13-61) 12/23/18 07:00 Alkaline Phosphatase 50 U/L (45-117) 12/23/18 07:00 Total Protein 6.3 g/dl (6.4-8.2) L 12/23/18 07:00 Albumin 3.3 g/dl (3.4-5.0) L 12/23/18 07:00 Urine Color Dkyellow 12/22/18 23:51 Urine Appearance Clear 12/22/18 23:51 Urine pH 6.0 (5.0-8.0) D 12/22/18 23:51 Ur Specific [place] 1.031 (1.010-1.035) 12/22/18 23:51 Urine Protein 1+ (NEGATIVE) H 12/22/18 23:51 Urine Glucose (UA) Negative (NEGATIVE) 12/22/18 23:51 Urine Ketones Negative (NEGATIVE) 12/22/18 23:51 Urine Blood Negative (NEGATIVE) 12/22/18 23:51 Urine Nitrite Negative (NEGATIVE) 12/22/18 23:51 Urine Bilirubin Negative (<2.0 mg/dL) 12/22/18 23:51 Urine Urobilinogen 4.0 e.u/dl mg/dL (0.2-1.0) 12/22/18 23:51 Ur Leukocyte Esterase Negative (NEGATIVE) 12/22/18 23:51 Urine WBC (Auto) 1 /hpf (3-5) 12/22/18 23:51 Urine RBC (Auto) 1 /hpf (0-3) 12/22/18 23:51 Ur Epithelial Cells Rare /HPF (FEW) 12/22/18 23:51 Calcium Oxalate Crystal Few /hpf (NONE SEEN) 12/22/18 23:51 Urine Mucus Few 12/22/18 23:51 RPR Titer Nonreactive (NONREACTIVE) 12/23/18 07:00 HIV 1&2 Antibody Screen Negative 12/23/18 07:00 HIV P24 Antigen Negative 12/23/18 07:00 lab noted Assessment: 12/25/18 11:17 withdrawal sx Plan: continue detox
--- NOTE | 2018-12-25 15:20 | CONSULT ---
[facility] Psychiatric Consult - Data Date of interview: 12/25/18 Admission source: [facility] Identifying data: Readmission to [facility] for this 33 y/o male self- referred for detoxification (cocaine, heroin, cannabis). Examined at [address] [place] [address]. Patient is single, a father of three, homeless, unemployed and deprived of income. Substance Abuse History: Discussed with patient. Confirmed history of substance abuse. Details in current [facility] report. Smoking history: Current every day smoker. Have you smoked in the past 12 months: Yes. Aproximately how many cigarettes per day: 20. Cigars Per Day: 0. Hx Chewing Tobacco Use: No. Initiated information on smoking cessation: Yes. 'Breaking Loose' booklet given : 12/22/18. - Substance & Tx. History. Hx Alcohol Use: No. Hx Substance Use: Yes. Substance Use Type: Cocaine, Heroin, Marijuana. Hx Substance Use Treatment: Yes ([facility] 09/17/18 to 09/22/18). - Substances Abused. Heroin. Route: Injection. Frequency: Daily. Amount used: 30 bags to 40 bags. Age of first use: 27. Date of Last Use: 12/21/18. Cocaine. Route: Injection. Frequency: Daily. Amount used: 50$ to 100$. Age of first use: 16. Date of Last Use: 12/21/18. Marijuana/Hashish. Route: Smoking. Frequency: 1-2 times per week. Amount used: 10$. Age of first use: 13. Date of Last Use: 12/07 Medical History: Bronchial asthma and Lyme's disease. Psychiatric History: No reported history of psychiatric hospitalizations. Patient declares that he was diagnosed with MDD, Anxiety Disorder and PTSD in 2010. Received [facility] at the [facility] and the [facility]. Stopped taking paroxetine about three months ago and dropped out of psychiatric follow-up. Mr Owusu denies history of suicide attempts. Physical/Sexual Abuse/Trauma History: Patient denies. Additional Comment: Urine Drug Screen Results: THC-Marijuana, ZHANG-Cocaine, OPI- Opiates, OXY-Oxycodone, FEN-Fentanyl. Noted. Mental Status Exam - Mental Status Exam Alert and Oriented to: Time, Place, Person Cognitive Function: Good Patient Appearance: Disheveled Mood: Nervous, Withdrawn Affect: Mood Congruent, Constricted Patient Behavior: Fatigued, Cooperative Speech Pattern: Clear, Appropriate Voice Loudness: Normal Thought Process: Goal Oriented Thought Disorder: Not Present Hallucinations: Denies Suicidal Ideation: Denies Homicidal Ideation: Denies Insight/Judgement: Poor Sleep: Poorly (requests seroquel at bedtime), Difficulty falling asleep Appetite: Good Muscle strength/Tone: Normal Gait/Station: Normal Psychiatric Findings - Problem List ([place] 1, 2,3) (1) Opioid dependence with withdrawal Current Visit: Yes Status: Acute (2) Cannabis abuse Current Visit: Yes Status: Chronic (3) Cocaine dependence Current Visit: Yes Status: Chronic (4) Nicotine dependence Current Visit: Yes Status: Chronic (5) Substance induced mood disorder Current Visit: Yes Status: Chronic (6) Insomnia Current Visit: Yes Status: Chronic (7) Non-compliant patient Current Visit: Yes Status: Chronic - Initial Treatment Plan Initial Treatment Plan: Psychoeducation. Sleep hygiene. Detoxification. AA/NA meetings. Support. Insomnia is addressed with seroquel 50 mg po hs (patient's specific request). Side effects/benefits discussed with patient. Mr Owusu consents (verbally) to this plan of care. Observation.
[2018-12-25] MEDS: hydrOXYzine PAMOATE 25 MG CAPSULE (FP) PO PRN (16:59)
[2018-12-25] MEDS: MAG HYDROX/AL HYDROX/SIMETH 30 ML UNIT-DOSE CUP PO PRN ×2 (17:01→23:02)
[2018-12-25] MEDS: MELATONIN 5 MG TABLETS PO PRN (22:15)
[2018-12-25] MEDS: QUEtiapine FUMARATE 50 MG TABLET PO SCH (22:15)
[2018-12-25] MEDS: THIAMINE HCL 100 MG TABLET (FP) PO SCH (22:15)
[2018-12-26] MEDS: AMOX TR/POT CLAV 875MG/125MG TABLETS (FP) PO SCH ×2 (07:54→17:23)
[2018-12-26] MEDS: hydrOXYzine PAMOATE 25 MG CAPSULE (FP) PO PRN ×4 (07:54→22:26)
[2018-12-26] MEDS: CYCLOBENZAPRINE HCL 10 MG TABLET (FP) PO PRN ×2 (07:54→22:24)
[2018-12-26] MEDS ORDERED: METHADONE HCL 10 MG TABLET (FOR DETOX USE ONLY) PO ONE (10:00)
--- NOTE | 2018-12-26 10:02 | PN ---
[facility]HS Progress Note (SOAP) Subjective: feeling better mild body aches less tremor discuss medication assisted treatment program informed negative consequences of opiate based substances Objective: 12/26/18 10:01 Vital Signs Temperature 97.7 F 12/26/18 09:20 Pulse Rate 114 H 12/26/18 09:20 Respiratory Rate 18 12/26/18 09:20 Blood Pressure 106/68 12/26/18 09:20 O2 Sat by Pulse Oximetry (%) Laboratory Last Values WBC 6.5 K/mm3 (4.0-10.0) 12/23/18 07:00 RBC 4.62 M/mm3 (4.00-5.60) 12/23/18 07:00 Hgb 14.0 GM/dL (11.7-16.9) 12/23/18 07:00 Hct 41.1 % (35.4-49) D 12/23/18 07:00 MCV 88.9 fl (80-96) 12/23/18 07:00 MCH 30.4 pg (25.7-33.7) 12/23/18 07:00 MCHC 34.2 g/dl (32.0-35.9) 12/23/18 07:00 RDW 13.7 % (11.9-15.9) 12/23/18 07:00 Plt Count 234 K/MM3 (134-434) 12/23/18 07:00 MPV 9.6 fl (7.5-11.1) 12/23/18 07:00 Sodium 142 mmol/L (136-145) 12/23/18 07:00 Potassium 4.1 mmol/L (3.5-5.1) 12/23/18 07:00 Chloride 107 mmol/L (98-107) 12/23/18 07:00 Carbon Dioxide 28 mmol/L (21-32) 12/23/18 07:00 Anion Gap 6 MMOL/L (8-16) L 12/23/18 07:00 BUN 12 mg/dL (7-18) 12/23/18 07:00 Creatinine 0.8 mg/dL (0.55-1.3) 12/23/18 07:00 Creat Clearance w eGFR > 60 (>60) 12/23/18 07:00 Random Glucose 87 mg/dL (74-106) 12/23/18 07:00 Calcium 8.7 mg/dL (8.5-10.1) 12/23/18 07:00 Total Bilirubin 0.3 mg/dL (0.2-1) 12/23/18 07:00 AST 19 U/L (15-37) 12/23/18 07:00 ALT 24 U/L (13-61) 12/23/18 07:00 Alkaline Phosphatase 50 U/L (45-117) 12/23/18 07:00 Total Protein 6.3 g/dl (6.4-8.2) L 12/23/18 07:00 Albumin 3.3 g/dl (3.4-5.0) L 12/23/18 07:00 Urine Color Dkyellow 12/22/18 23:51 Urine Appearance Clear 12/22/18 23:51 Urine pH 6.0 (5.0-8.0) D 12/22/18 23:51 Ur Specific [place] 1.031 (1.010-1.035) 12/22/18 23:51 Urine Protein 1+ (NEGATIVE) H 12/22/18 23:51 Urine Glucose (UA) Negative (NEGATIVE) 12/22/18 23:51 Urine Ketones Negative (NEGATIVE) 12/22/18 23:51 Urine Blood Negative (NEGATIVE) 12/22/18 23:51 Urine Nitrite Negative (NEGATIVE) 12/22/18 23:51 Urine Bilirubin Negative (<2.0 mg/dL) 12/22/18 23:51 Urine Urobilinogen 4.0 e.u/dl mg/dL (0.2-1.0) 12/22/18 23:51 Ur Leukocyte Esterase Negative (NEGATIVE) 12/22/18 23:51 Urine WBC (Auto) 1 /hpf (3-5) 12/22/18 23:51 Urine RBC (Auto) 1 /hpf (0-3) 12/22/18 23:51 Ur Epithelial Cells Rare /HPF (FEW) 12/22/18 23:51 Calcium Oxalate Crystal Few /hpf (NONE SEEN) 12/22/18 23:51 Urine Mucus Few 12/22/18 23:51 RPR Titer Nonreactive (NONREACTIVE) 12/23/18 07:00 HIV 1&2 Antibody Screen Negative 12/23/18 07:00 HIV P24 Antigen Negative 12/23/18 07:00 lab noted Assessment: 12/26/18 10:01 mild withdrawal sx Plan: continue detox
[2018-12-26] MEDS: cloNIDine HCL 0.1 MG TABLET PO SCH ×2 (10:16→22:24)
[2018-12-26] MEDS: PRENATAL VITAMINS W/ FOLIC ACID TABLET (FP) PO SCH (10:16)
[2018-12-26] MEDS: BUDESONIDE/FORMETEROL FUMARATE 80/4.5 mcg INHALER IH SCH ×2 (10:17→22:24)
[2018-12-26] MEDS: NICOTINE 21 MG/24 HOURS TOPICAL PATCH TD SCH (10:17)
[2018-12-26] MEDS: MAG HYDROX/AL HYDROX/SIMETH 30 ML UNIT-DOSE CUP PO PRN ×2 (10:20→20:37)
[2018-12-26] MEDS: NICOTINE POLACRILEX 2 MG GUM BUC PRN (10:20)
[2018-12-26] MEDS: IBUPROFEN 400 MG TABLET (FP) PO PRN (12:36)
[2018-12-26] MEDS: THIAMINE HCL 100 MG TABLET (FP) PO SCH (22:24)
[2018-12-26] MEDS: QUEtiapine FUMARATE 50 MG TABLET PO SCH (22:24)
[2018-12-27] MEDS: hydrOXYzine PAMOATE 25 MG CAPSULE (FP) PO PRN (05:46)
[2018-12-27] MEDS ORDERED: METHADONE HCL 5 MG TABLET (FOR DETOX USE ONLY) PO ONE (06:00)
[2018-12-27] MEDS: AMOX TR/POT CLAV 875MG/125MG TABLETS (FP) PO SCH (07:05)
[2018-12-27] MEDS: cloNIDine HCL 0.1 MG TABLET PO SCH (10:12)
[2018-12-27] MEDS: PRENATAL VITAMINS W/ FOLIC ACID TABLET (FP) PO SCH (10:12)
[2018-12-27] MEDS: CYCLOBENZAPRINE HCL 10 MG TABLET (FP) PO PRN (10:12)
[2018-12-27] MEDS: BUDESONIDE/FORMETEROL FUMARATE 80/4.5 mcg INHALER IH SCH (10:13)
[2018-12-27] MEDS: NICOTINE 21 MG/24 HOURS TOPICAL PATCH TD SCH (10:14)
[2018-12-27] MEDS: NICOTINE POLACRILEX 2 MG GUM BUC PRN (10:15)
[2018-12-27 13:07] VITALS: BP 118/74; PULSE 113; TEMP 98.1
[2018-12-27] MEDS: IBUPROFEN 400 MG TABLET (FP) PO PRN (14:40)
[2018-12-27] MEDS: MAG HYDROX/AL HYDROX/SIMETH 30 ML UNIT-DOSE CUP PO PRN (14:41)
--- NOTE | 2018-12-27 18:55 | DS ---
[facility] Detox Discharge Summary Admission Date: 12/22/18 Discharge Date: 12/27/18 - History Present History: Cannabis Dependence, Cocaine Dependence, Opioid Dependence Additional Comments: PATIENT ELECTING GO HOME AND PURSUE OUTPATIENT SUPPORT GROUP PROGRAM, LIKELY THE '[facility] RECOVER OTP PROGRAM' ([place], [place]). PATIENT ADVISED TO FOLLOW-UP WITH [facility] DR. Lena GHOSH WHEN POSSIBLE DISCHARGE FROM DETOX UNIT FOR GENERAL MEDICAL EVALUATION AND FOR HISTORY OF UTI DIAGNOSED WHILE ADMITTED FOR DETOX. DISCHARGE MEDICATION PRESCRIPTIONS (INCLUDING REMAINDER OF AUGMENTIN STARTED FOR PATIENT WHILE ADMITTED FOR DETOX FOR ACUTE SINUSITIS) SENT TO PATIENT'S PHARMACY ([facility], [place]) FOR PATIENT TO PICK AFTER DISCHARGE FROM DETOX UNIT. PATIENT ADVISED TO COMPLETE FULL COURSE OF AUGMENTIN AFTER PICKING UP. PATIENT VERBALIZED UNDERSTANDING OF ALL RECOMMENDATIONS. PATIENT WAS DISCHARGED FROM DETOX UNIT NI STABLE MEDICAL CONDITION. Pertinent Past History: Asthma, History of Depression, Anxiety, History of Insomnia, Nicotine Dependence , Acute Sinusitis, History of I.V.D.U., Weight Loss. - Physical Exam Results Vital Signs: Vital Signs Temperature 98.1 F 12/27/18 13:06 Pulse Rate 113 H 12/27/18 13:06 Respiratory Rate 20 12/27/18 13:06 Blood Pressure 118/74 12/27/18 13:06 O2 Sat by Pulse Oximetry (%) Pertinent Admission Physical Exam Findings: WITHDRAWAL SYMPTOMS. Laboratory Tests 12/22/18 12/23/18 12/23/18 23:51 07:00 07:00 WBC 6.5 RBC 4.62 Hgb 14.0 Hct 41.1 D MCV 88.9 MCH 30.4 MCHC 34.2 RDW 13.7 Plt Count 234 MPV 9.6 Sodium 142 Potassium 4.1 Chloride 107 Carbon Dioxide 28 Anion Gap 6 L BUN 12 Creatinine 0.8 Creat Clearance w eGFR > 60 Random Glucose 87 Calcium 8.7 Total Bilirubin 0.3 AST 19 ALT 24 Alkaline Phosphatase 50 Total Protein 6.3 L Albumin 3.3 L Urine Color Dkyellow Urine Appearance Clear Urine pH 6.0 D Ur Specific [place] 1.031 Urine Protein 1+ H Urine Glucose (UA) Negative Urine Ketones Negative Urine Blood Negative Urine Nitrite Negative Urine Bilirubin Negative Urine Urobilinogen 4.0 e.u/dl Ur Leukocyte Esterase Negative Urine WBC (Auto) 1 Urine RBC (Auto) 1 Ur Epithelial Cells Rare Calcium Oxalate Crystal Few Urine Mucus Few RPR Titer HIV 1&2 Antibody Screen HIV P24 Antigen 12/23/18 12/23/18 07:00 07:00 WBC RBC Hgb Hct MCV MCH MCHC RDW Plt Count MPV Sodium Potassium Chloride Carbon Dioxide Anion Gap BUN Creatinine Creat Clearance w eGFR Random Glucose Calcium Total Bilirubin AST ALT Alkaline Phosphatase Total Protein Albumin Urine Color Urine Appearance Urine pH Ur Specific [place] Urine Protein Urine Glucose (UA) Urine Ketones Urine Blood Urine Nitrite Urine Bilirubin Urine Urobilinogen Ur Leukocyte Esterase Urine WBC (Auto) Urine RBC (Auto) Ur Epithelial Cells Calcium Oxalate Crystal Urine Mucus RPR Titer Nonreactive HIV 1&2 Antibody Screen Negative HIV P24 Antigen Negative LABS NOTED. - Treatment Hospital Course: Detox Protocol Followed, Detoxed Safely, Responded well, Discharged Condition Good Patient has Accepted a Rehab Referral to: PATIENT WILL LIKELY ATTEND [facility] OP PROGRAM. - Medication Discharge Medications: Ambulatory Orders Albuterol Sulfate Inhaler - [Ventolin HFA Inhaler -] 2 puff IH Q4H PRN #1 inhaler 12/26/18 Amox-Tr/K Cl [Augmentin 875-125mg Tablet -] 1 tab PO BID@0800,1730 #10 tablet Budesonide/Formeterol Fumarate [SYMBICORT 80/4.5mcg -] 1 inh PO BID #1 inhaler 12/26/18 Naloxone HCl [Narcan] 4 mg NS ASDIR PRN #1 spray 12/26/18 cloNIDine HCL [Catapres -] 0.1 mg PO BID #30 tablet 12/26/18 Albuterol Sulfate Inhaler - [Ventolin Hfa Inhaler -] 1 - 2 inh PO Q4H PRN #1 inhaler 12/27/18 Amoxicillin/Potassium Clav [Augmentin 875-125 Tablet] 1 each PO BID 7 Days #14 tablet 12/27/18 Budesonide/Formeterol Fumarate [SYMBICORT 80/4.5mcg -] 1 inh PO BID #1 cannister 12/27/18 Naloxone HCl [Narcan] 4 mg NS ASDIR PRN #1 kit 12/27/18 - Diagnosis (1) Acute sinusitis Status: Acute Qualifiers: Sinusitis location: unspecified location Recurrence: recurrent Qualified Code(s): J01.91 - Acute recurrent sinusitis, unspecified (2) IVDU (intravenous drug user) Status: Acute (3) Opioid dependence with withdrawal Status: Acute (4) Weight loss Status: Acute (5) Anxiety Status: Chronic (6) Asthma Status: Chronic Qualifiers: Asthma severity: unspecified severity Asthma persistence: unspecified Asthma complication type: uncomplicated Qualified Code(s): J45.909 - Unspecified asthma, uncomplicated (7) Cannabis abuse Status: Chronic (8) Cocaine dependence Status: Chronic Qualifiers: Substance use status: uncomplicated Qualified Code(s): F14.20 - Cocaine dependence, uncomplicated (9) 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
== END 2018-12-27 14:49 | disposition home or self-care (01) | DRG 773 ==
LOC: YASAS 08:02 → Y3N 10:04
PROVIDERS: ADMIT Neuromusculoskeletal Medicine & OMM; ATTEND Neuromusculoskeletal Medicine & OMM
PROC: HZ2ZZZZ Detoxification Services for Substance Abuse Treatment (ICD-10-PCS; principal; 2018-12-22)
DX: F11.23 Opioid dependence with withdrawal (principal); F14.20 Cocaine dependence, uncomplicated; F12.10 Cannabis abuse, uncomplicated; F17.210 Nicotine dependence, cigarettes, uncomplicated; F41.9 Anxiety disorder, unspecified; F51.05 Insomnia due to other mental disorder; F19.24 Other psychoactive substance dependence with psychoactive substance-induced mood disorder; J01.90 Acute sinusitis, unspecified; J45.909 Unspecified asthma, uncomplicated; Z91.19 Patient's noncompliance with other medical treatment and regimen
CPT/HCPCS: 36415; 80053; 81003; 81015; 85027; 86593; 87389; J0735